=== PATIENT | female | born 1960 | race Caucasian/White ===

== ENCOUNTER 2020-03-13 13:38 | Emergency (ER) | payer BC ==
[2020-03-13 14:12] LABS: Absolute Lymphocytes (CBC) 1.1 K/uL (0.7-4.9); Basophils % 1.1 % (0-1.3); Hematocrit 36.4 % (36.0-45.0); Lymphocytes % 15.8 % (15.3-44.8); MPV 9.4 fL (7.6-11.3); RBC Red Blood Cell Count 4.08 M/uL (3.86-4.86)
[2020-03-13 14:25] LABS: Potassium 3.8 mmol/L (3.5-5.1)
--- NOTE | 2020-03-13 15:05 | RAD REPORT ---
EXAM DESCRIPTION: CTAbdomen Pelvis W Contrast - 03/13/2020 2:39 pm CLINICAL HISTORY: Abdominal pain. low back pain COMPARISON: No comparisons TECHNIQUE: Biphasic CT imaging of the abdomen and pelvis was performed with 100 ml non-ionic IV cont rast. All CT scans are performed using dose optimization technique as appropriate and may include automated exposure control or mA/KV adjustment according to patient size. FINDINGS: Linear atelectasis is present in the left lung base.The majority of the stomach is within the inferior left hemithorax compatible with a large hiatal hernia. Diffuse fatty liver. Cholelithiasis. The spleen, adrenal glands and pancreas are within normal limits . No bowel obstruction, free air, free fluid or abscess. The appendix is normal. No evidence of signi ficant lymphadenopathy. Mild compression fractures are seen affecting T12 and L1 vertebral bodies with estimated 10-15% loss of vertebral body height. These are likely acute. No posterior canal compromise. IMPRESSION: Mild acute T12 and L1 vertebral body compression fractures. No canal compromise seen. Cholelithiasis. Significant hiatal hernia with majority of the stomach intrathoracic in position.
[2020-03-13 15:11] LABS: Urine Bacteria 20-50 /HPF (<20); Urine RBC NONE SEEN /HPF (NONE SEEN)
[2020-03-13 15:12] LABS: Urine Culture Reflex Order REFLEXED
[2020-03-13 15:22] LABS: Urine Blood NEGATIVE (NEG); Urine Glucose NEGATIVE (NEG); Urine Protein NEGATIVE (NEG); Urine Specific Gravity 1.015 (1.005-1.030); Urine pH 6.5 (5.0-7.0)
[2020-03-13] MEDS ORDERED: HYDROCODONE/APAP 7.5/325 MG TAB ONE (15:41)
[2020-03-13] MEDS ORDERED: CYCLOBENZAPRINE 10 MG TAB ONE (15:41)
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
[2020-03-13 16:28] VITALS: TEMP 97.5; O2SAT 97
[2020-03-13 16:31] VITALS: BP 136/85
[2020-03-13] MEDS ORDERED: FENTANYL CITR 100 MCG/2 ML ONE (16:40)
== END 2020-03-13 16:23 | disposition home or self-care (01) ==
LOC: ER 13:38
DX: S22.089A Unspecified fracture of T11-T12 vertebra, initial encounter for closed fracture (principal); S32.019A Unspecified fracture of first lumbar vertebra, initial encounter for closed fracture; W22.8XXA Striking against or struck by other objects, initial encounter; Y93.89 Activity, other specified; Y92.9 Unspecified place or not applicable; Z88.5 Allergy status to narcotic agent; I10 Essential (primary) hypertension
CPT/HCPCS: 87088; 85025; 87086; 80048; 36415; 86900; 86850; 82565; 86901; 74177; 96374; 99284; Q9967; J3010; 81003; 81015

== ENCOUNTER 2021-05-16 16:56 | Emergency (ER) | payer BC ==
--- OUTSIDE RECORDS SUMMARY | 2021-05-16 16:59 | XMS REPORT | Continuity of Care Document ---
:1960 Author Organization [facility] t Address [address] [place] [address] Care Team Providers Name Role Phone Radiology Attending Clinician Unavailable RADIOLOGY Attending Clinician Unavailable BHUPINDER Attending Clinician Unavailable Payers Payer Name Policy Type Policy Number Effective Date Expiration Date S ource Problems This patient has no known problems. Allergies, Adverse Reactions, Alerts Allergy Allergy Status Severity Reaction(s) Onset Inactive Treating Comm ents Source Name Type Date Date Clinician NO KNOWN Drug Active Univers [facility]ERG[facility] Class [facility] Social History Social Habit Start Date Stop Date Quantity Comments Source Sex Assigned At Uni versity [facility] Exposure to SARS-CoV-2 Not sure [facility] [place] (event) [facility] Smoking Status Start Date Stop Date Source [facility] Medications This patient has no known medications. Procedures This patient has no known procedures. Encounters Start End Encounter Admission Attending Care Care Encounter Source Date/Time Date/Time Type Type Clinicians Facility Department ID 2020-06-17 2020-06-17 Hospital Radiology [facility] [id number] Univers 10:20:00 23:59:00 Encounter [place] [id number] ity [facility] [id number] [facility] [id number] [place] [id number] [address] 2020-06-17 2020-06-17 Outpatient R RADIOLOGY [facility] [id number] [facility] 2020-03-31 Outpatient BHUPINDER [facility] [id number] [facility] 07:48:00 13:18:00 , BERT Results This patient has no known results.
--- NOTE | 2021-05-16 20:28 | RAD REPORT ---
EXAM DESCRIPTION: RAD - Chest Single View - 05/16/2021 8:08 pm CLINICAL HISTORY: CHEST PAIN Chest pain. COMPARISON: No comparisons FINDINGS: Portable technique limits examination quality. Mild linear atelectasis is present in the left mid lung. Mild interstitial prominence is also present which may represent viral infection or mild interstitial pulmonary edema. Small nodular opacity in t he right mid lung is nonspecific. The heart is upper limit normal in size. Prominent hiatal hernia. Recommend followup CT chest for further evaluation.
[2021-05-16 21:11] LABS: Absolute Lymphocytes (CBC) 1.9 K/uL (0.7-4.9); Hematocrit 44.1 % (36.0-45.0); Lymphocytes % 28.5 % (15.3-44.8); MPV 8.9 fL (7.6-11.3); RBC Red Blood Cell Count 5.02 M/uL (3.86-4.86)
[2021-05-16 21:15] LABS: Protime INR 0.96
[2021-05-16] MEDS ORDERED: ASPIRIN 81 MG CHEWABLE TABLET ONE (21:17)
[2021-05-16] MEDS ORDERED: MORPHINE 4 MG/ML SYR ONE (21:17)
[2021-05-16] MEDS ORDERED: ONDANSETRON 4 MG/2 ML VIAL ONE (21:17)
[2021-05-16 21:29] LABS: ALT/SGPT 102 U/L (12-78); AST/SGOT 54 U/L (15-37); Albumin 4.1 g/dL (3.4-5.0); Alkaline Phosphatase 55 U/L (45-117); BUN Blood Urea Nitrogen 12 mg/dL (7-18); Bicarbonate 26 mmol/L (21-32); Bilirubin Direct 0.2 mg/dL (0-0.2); Bilirubin Total 0.7 mg/dL (0.2-1.0); Glucose Level 112 mg/dL (74-106); Magnesium 2.3 mg/dL (1.8-2.4); NT PRO-BNP 102 pg/mL (<125); Potassium 3.9 mmol/L (3.5-5.1); Protein, Total 8.2 g/dL (6.4-8.2); Sodium Level 141 mmol/L (136-145); Troponin (Emerg Dept Use Only) < 0.02 ng/mL (0.0-0.045)
[2021-05-16 22:22] LABS: SARS-COV-2 RT PCR POSITIVE (NEGATIVE)
[2021-05-17] MEDS ORDERED: LORazepam 2 MG/ML VIAL ONE (01:20)
[2021-05-17] MEDS ORDERED: KETOROLAC 30 MG/ML INJ ONE (01:20)
[2021-05-17] MEDS ORDERED: NA CHLORIDE 0.9% 500 ML ONE (01:20)
--- NOTE | 2021-05-17 02:17 | EDPHYS ---
Physician Documentation [facility] Name: Debra Shaw Age: 61 yrs Sex: Female : 1960 Arrival Date: 05/16/2021 Time: 16:58 Bed 19 Private MD: Johanna Shirley ED Physician Lester Yu HPI: 05/16 20:45 This 61 yrs old Female presents to ER via Wheelchair with complaints of Chest Pain, cp Shortness Of Breath. 20:45 The patient or guardian reports chest pain that is located primarily in the anterior cp chest wall, left. 20:45 Onset: today. cp 20:45 The pain does not radiate. cp 20:45 Associated signs and symptoms: Pertinent positives: shortness of breath, Pertinent cp negatives: abdominal pain, cough, diaphoresis, lower extremity pain, lower extremity swelling, palpitations, syncope, vomiting. The chest pain is described as sharp. Duration: The patient or guardian reports a single episode, that is still ongoing. Historical: - Allergies: 17:07 Phenobarbital; ap3 - Home Meds: 17:07 Lisinopril Oral [Active]; pravastatin oral [Active]; ap3 - PMHx: 17:07 High Cholesterol; Hypertension; mitral valve prolapse; ap3 - Immunization history:: Client reports receiving the 2nd dose of the Covid vaccine, and booster. - Social history:: Smoking status: Patient denies any tobacco usage or history of. Patient uses alcohol, occasionally. ROS: 20:50 Constitutional: Negative for body aches, chills, fever, poor PO intake. cp 20:50 Eyes: Negative for injury, pain, redness, and discharge. cp 20:50 ENT: Negative for ear pain, sore throat, difficulty swallowing, difficulty handling secretions. 20:50 Cardiovascular: Positive for chest pain, Negative for edema, palpitations. 20:50 Respiratory: Negative for cough, shortness of breath, wheezing. 20:50 Abdomen/GI: Negative for abdominal pain, nausea, vomiting, and diarrhea. 20:50 Back: Negative for pain at rest, pain with movement. 20:50 : Negative for urinary symptoms. 20:50 Neuro: Negative for altered mental status, dizziness, headache, numbness, syncope, weakness. 20:50 All other systems are negative. Exam: 17:10 ECG was reviewed by the Attending Physician. cp 20:55 Constitutional: The patient appears in no acute distress, alert, awake, cp non-diaphoretic, non-toxic, well developed, well nourished, anxious. 20:55 Head/Face: Normocephalic, atraumatic. cp 20:55 Eyes: Periorbital structures: appear normal, Conjunctiva: normal, no exudate, no injection, Sclera: no appreciated abnormality, Lids and lashes: appear normal, bilaterally. 20:55 ENT: External ear(s): are unremarkable, Nose: is normal, Mouth: Lips: moist, Oral mucosa: pink and intact, moist, Posterior pharynx: Airway: no evidence of obstruction, patent. 20:55 Neck: ROM/movement: is normal, is supple, without pain, no range of motions limitations, no nuchal rigidity. 20:55 Chest/axilla: Inspection: normal. 20:55 Cardiovascular: Rate: normal, Rhythm: regular, Pulses: Pulses are 2+ in right radial artery and left radial artery. Edema: is not appreciated, JVD: is not appreciated. 20:55 Respiratory: the patient does not display signs of respiratory distress, Respirations: normal, no use of accessory muscles, no retractions, labored breathing, is not present, Breath sounds: are clear throughout, no decreased breath sounds, no stridor, no wheezing. 20:55 Abdomen/GI: Inspection: abdomen appears normal, Palpation: abdomen is soft and non-tender, in all quadrants. 20:55 Back: pain, is absent, ROM is normal. 20:55 Neuro: Orientation: to person, place \\T\\ time. Mentation: is normal, Motor: moves all fours, strength is normal, Sensation: is normal. 21:17 ECG was reviewed by the Attending Physician. cp Vital Signs: 17:05 BP 215 / 104; Pulse 72; Temp 97.9(O); Pulse Ox 99% on R/A; Weight 72.57 kg; Height 5 ap3 ft. 5 in. (165.10 cm); Pain 10/10; 21:21 BP 203 / 99; Pulse 62; Resp 20; Temp 98.5; Pulse Ox 100% ; lt3 23:00 BP 179 / 93; Pulse 65; Resp 20; Pulse Ox 95% on R/A; oe 05/17 00:00 BP 168 / 86; Pulse 53; Resp 18; Pulse Ox 97% on R/A; oe 01:30 BP 169 / 99; Pulse 58; Resp 18; Pulse Ox 97% on R/A; oe 02:35 BP 159 / 87; Pulse 59; Resp 16; Pulse Ox 92% on R/A; oe 05/16 17:05 Body Mass Index 26.63 (72.57 kg, 165.10 cm) ap3 MDM: 05/16 20:46 Patient medically screened. cp 21:00 Differential diagnosis: abnormal EKG, acute myocardial infarction, acute pericarditis, cp anxiety, chest wall pain, cholecystitis, Cholelithiasis costochondritis, pancreatitis, pericarditis, pneumonia, pneumothorax, pulmonary embolus. 05/17 02:15 Data reviewed: vital signs, nurses notes, lab test result(s), EKG, radiologic studies, cp CT scan, plain films. 02:15 The patient was given aspirin in the Emergency Department. Test interpretation: by ED cp physician or midlevel provider: ECG, plain radiologic studies. Response to treatment: the patient's symptoms have resolved after treatment, the patient's pain is gone, and as a result, I will discharge patient. 02:16 ED course: VSS. Pain resolved, blood pressure markedly improved. Initial and repeat cp troponin negative, EKG negative for STEMI. will discharge to home for continued monitoring. 05/16 19:36 Order name: Basic Metabolic Panel; Complete Time: 21:30 kb 05/16 21:31 Interpretation: Normal except: CL 108; GLUC 112; GFR 63. cp 05/16 19:36 Order name: CBC with Diff; Complete Time: 21:30 kb 05/16 21:31 Interpretation: Normal except: RBC 5.02. cp 05/16 19:36 Order name: LFT's; Complete Time: 21:30 kb 05/16 21:31 Interpretation: Normal except: AST 54; ALT 102; GLOB 4.1; A/G 1.0. cp 05/16 19:36 Order name: Magnesium; Complete Time: 21:30 kb 05/16 19:36 Order name: NT PRO-BNP; Complete Time: 21:30 kb 05/16 19:36 Order name: PT-INR; Complete Time: 21:30 kb 05/16 19:36 Order name: Troponin (emerg Dept Use Only); Complete Time: 21:30 kb 05/16 19:36 Order name: XRAY Chest (1 view); Complete Time: 20:31 kb 05/16 20:33 Order name: COVID-19/FLU A+B (Document "Date of Onset" if Symptomatic); Complete Time: cp 22:39 05/16 22:39 Interpretation: Reviewed. cp 05/16 21:32 Order name: CT Chest For PE Angio cp 05/16 23:33 Order name: Troponin (emerg Dept Use Only); Complete Time: 02:07 cp 05/17 02:08 Interpretation: TROPED < 0.02; Reviewed. cp 05/16 19:36 Order name: EKG; Complete Time: 19:37 kb 05/16 19:36 Order name: Cardiac monitoring; Complete Time: 20:59 kb 05/16 19:36 Order name: EKG - Nurse/Tech; Complete Time: 21:10 kb 05/16 19:36 Order name: IV Saline Lock; Complete Time: 20:59 kb 05/16 19:36 Order name: Labs collected and sent; Complete Time: 20:59 kb 05/16 19:36 Order name: O2 Per Protocol; Complete Time: 20:59 kb 05/16 19:36 Order name: O2 Sat Monitoring; Complete Time: 20:59 kb EC/27 17:10 Rate is 67 beats/min. Rhythm is regular. CA interval is normal. QRS interval is normal. cp QT interval is normal. T waves are Inverted in lead aVR. Interpreted by me. Reviewed by me. 21:17 Rate is 60 beats/min. Rhythm is regular. CA interval is normal. QRS interval is normal. cp QT interval is normal. T waves are Inverted in lead aVR. Interpreted by me. Reviewed by me. Administered Medications: 21:26 Drug: morphine 4 mg Route: IVP; Site: left antecubital; sv1 22:13 Follow up: Response: No adverse reaction; Pain is decreased sv1 21:26 Drug: Zofran (Ondansetron) 4 mg Route: IVP; Site: left antecubital; sv1 22:13 Follow up: Response: No adverse reaction; Nausea is decreased sv1 21:26 Drug: Aspirin Chewable Tablet 324 mg Route: PO; sv1 22:13 Follow up: Response: No adverse reaction sv1 05/17 01:38 Drug: Ketorolac 15 mg Route: IVP; Site: left antecubital; sv1 01:38 Drug: Ativan (LORazepam) 0.5 mg Route: IVP; Site: left antecubital; sv1 01:38 Drug: NS 0.9% 500 ml Route: IV; Rate: bolus; Site: left antecubital; sv1 Disposition: 03:04 Co-signature as Attending Physician, Lester Yu MD. pkl Disposition Summary: 05/17/21 02:16 Discharge Ordered Location: Home cp Problem: new cp Symptoms: have improved cp Condition: Stable cp Diagnosis - Chest pain, unspecified cp - Hypertensive heart disease without heart failure cp - SARS-associated coronavirus as the cause of diseases classified elsewhere cp Followup: cp - With: Marciano Gonzalez MD - When: 1 - 2 days - Reason: Recheck today's complaints Discharge Instructions: - Discharge Summary Sheet cp - Nonspecific Chest Pain, Adult cp - How to Take Your Blood Pressure, [id number] cp - Aspirin and Your Heart cp - COVID-19 cp - Things to Know about the COVID-19 Pandemic - [facility] cp - 10 Things You Can Do to Manage Your COVID-19 Symptoms at Home - [facility] cp - COVID-19: Quarantine vs. Isolation - [facility] cp - Prevent the Spread of COVID-19 if You Are Sick - [facility] cp Forms: - Medication Reconciliation Form cp - Thank You Letter cp - Antibiotic Education cp - Prescription Opioid Use cp Prescriptions: - Ibuprofen 800 mg Oral Tablet - take 1 tablet by ORAL route every 8 hours As needed take with food; 30 tablet; cp Refills: 0, Product Selection Permitted Signatures: Dispatcher [employer] Erinn Gaviria, [employer]-Lester Downey MD MD pkl Homer Robles PA PA cp Whit Dumas RN RN ap3 Emeka Morales RN RN sv1 Corrections: (The following items were deleted from the chart) 02:08 02:08 Reviewed. cp cp 18:33 05/16 20:00 Differential diagnosis: abnormal EKG, acute myocardial infarction, acute cp pericarditis, anxiety, chest wall pain, cholecystitis, Cholelithiasis costochondritis, pancreatitis, pericarditis, pneumonia, pneumothorax, pulmonary embolus, cp
--- NOTE | 2021-05-17 02:17 | ER ---
Nurse's Notes [facility] Name: Debra Shaw Age: 61 yrs Sex: Female : 1960 Arrival Date: 05/16/2021 Time: 16:58 Bed 19 Private MD: Johanna Shirley Diagnosis: Chest pain, unspecified;Hypertensive heart disease without heart failure;SARS-associated coronavirus as the cause of diseases classified elsewhere Presentation: 05/16 17:05 Chief complaint: Patient states: she started having chest pain this afternoon when ap3 driving, Patient states she didn't think anything of it until she realized she was clutching her chest. Coronavirus screen: At this time, the client does not indicate any symptoms associated with coronavirus-19. Ebola Screen: No symptoms or risks identified at this time. Initial Sepsis Screen: Does the patient meet any 2 criteria? No. Patient's initial sepsis screen is negative. Does the patient have a suspected source of infection? No. Patient's initial sepsis screen is negative. Risk Assessment: Do you want to hurt yourself or someone else? Patient reports no desire to harm self or others. Onset of symptoms was May 16, 2021. 17:05 Method Of Arrival: Wheelchair ap3 17:05 Acuity: IRMA 2 ap3 Triage Assessment: 17:08 General: Appears uncomfortable, Behavior is cooperative. Pain: Complains of pain in ap3 anterior aspect of left upper chest and left breast Pain currently is 10 out of 10 on a pain scale. Pain began suddenly, Noted to be clutching chest. Neuro: Level of Consciousness is awake, alert, obeys commands, Oriented to person, place, time, situation, Appropriate for age Speech is normal. Cardiovascular: Reports chest pain, shortness of breath, Patient's skin is warm and dry. Respiratory: Airway is patent Respiratory effort is even, unlabored, Respiratory pattern is regular, symmetrical. Historical: - Allergies: 17:07 Phenobarbital; ap3 - Home Meds: 17:07 Lisinopril Oral [Active]; pravastatin oral [Active]; ap3 - PMHx: 17:07 High Cholesterol; Hypertension; mitral valve prolapse; ap3 - Immunization history:: Client reports receiving the 2nd dose of the Covid vaccine, and booster. - Social history:: Smoking status: Patient denies any tobacco usage or history of. Patient uses alcohol, occasionally. Screenin:09 Abuse screen: Denies threats or abuse. Nutritional screening: No deficits noted. ap3 Tuberculosis screening: No symptoms or risk factors identified. Assessment: 05/17 02:48 Reassessment: Patient is alert, oriented x 3, equal unlabored respirations, skin bb warm/dry/pink. pt seen by this RN at discharge pt verbalized understanding of and agrees to plan of care discharge instructions given pt ambulated with steady gait to exit accompanied by spouse. Vital Signs: 05/16 17:05 BP 215 / 104; Pulse 72; Temp 97.9(O); Pulse Ox 99% on R/A; Weight 72.57 kg; Height 5 ap3 ft. 5 in. (165.10 cm); Pain 10/10; 21:21 BP 203 / 99; Pulse 62; Resp 20; Temp 98.5; Pulse Ox 100% ; lt3 23:00 BP 179 / 93; Pulse 65; Resp 20; Pulse Ox 95% on R/A; oe 05/17 00:00 BP 168 / 86; Pulse 53; Resp 18; Pulse Ox 97% on R/A; oe 01:30 BP 169 / 99; Pulse 58; Resp 18; Pulse Ox 97% on R/A; oe 02:35 BP 159 / 87; Pulse 59; Resp 16; Pulse Ox 92% on R/A; oe 05/16 17:05 Body Mass Index 26.63 (72.57 kg, 165.10 cm) ap3 ED Course: 05/16 16:58 Patient arrived in ED. mr 16:59 Johanna Shirley is Private Physician. mr 17:07 Triage completed. ap3 17:09 Patient maintains SpO2 saturation greater than 95% on room air. ap3 17:09 EKG done, by ED staff. ap3 17:09 Arm band placed on left wrist. ap3 20:08 XRAY Chest (1 view) In Process Unspecified. EDMS 20:26 Homer Robles PA is PHCP. cp 20:26 Lester Yu MD is Attending Physician. cp 20:58 Emeka Morales, RORY is Primary Nurse. sv1 20:58 Initial lab(s) drawn, by ne, sent to lab. Inserted saline lock: 22 gauge in left lt3 antecubital area, using aseptic technique. 21:10 EKG done, by ED staff, reviewed by Homer PEÑA. lt3 22:28 CT Chest For PE Angio In Process Unspecified. EDNJ 05/17 02:16 Marciano Gonzalez MD is Referral Physician. cp 02:49 No provider procedures requiring assistance completed. IV discontinued, intact, bb bleeding controlled, No redness/swelling at site. Pressure dressing applied. Administered Medications: 05/16 21:26 Drug: morphine 4 mg Route: IVP; Site: left antecubital; sv1 22:13 Follow up: Response: No adverse reaction; Pain is decreased sv1 21:26 Drug: Zofran (Ondansetron) 4 mg Route: IVP; Site: left antecubital; sv1 22:13 Follow up: Response: No adverse reaction; Nausea is decreased sv1 21:26 Drug: Aspirin Chewable Tablet 324 mg Route: PO; sv1 22:13 Follow up: Response: No adverse reaction sv1 05/17 01:38 Drug: Ketorolac 15 mg Route: IVP; Site: left antecubital; sv1 01:38 Drug: Ativan (LORazepam) 0.5 mg Route: IVP; Site: left antecubital; sv1 01:38 Drug: NS 0.9% 500 ml Route: IV; Rate: bolus; Site: left antecubital; sv1 Outcome: 02:16 Discharge ordered by MD. cp 02:49 Discharged to home ambulatory, with family. bb 02:49 Condition: stable 02:49 Discharge instructions given to patient, Instructed on discharge instructions, follow up and referral plans. medication usage, Demonstrated understanding of instructions, follow-up care, medications, Prescriptions given X 1. 02:49 Patient left the ED. bb Signatures: Dispatcher [employer] EDNJ RahulGayle Brenda, RN RN bb Page, Corey, PA PA cp Chao Barton Amanda RN RN 3 Nisreen Suárez [facility] Emeka Morales RN RN sv1
[2021-05-17 02:58] VITALS: TEMP 98.5
[2021-05-17 03:03] VITALS: BP 159/87; O2SAT 92
--- NOTE | 2021-05-17 11:22 | RAD REPORT ---
EXAM DESCRIPTION: Chest For Pe Angio RadLex: CT CHEST ANGIOGRAPHY WITH IV CONTRAST CLINICAL HISTORY: CHEST PAIN. COMPARISON: None. TECHNIQUE: CTA of the chest was performed following intravenous administration of iodinated contrast . Axial soft tissue and lung window, and coronal and sagittal soft tissue window reconstructions were created and sent to PACS. 3D postprocessing was performed on an independent workstation, with images sent to PACS for subsequen t review. This exam was performed according to our departmental dose-optimization program, which includes autom ated exposure control, adjustment of the mA and/or kV according to patient size and/or use of iterati ve reconstruction technique. FINDINGS: Vascular: The pulmonary arteries are adequately opacified to the segmental level. No CT ev idence of acute pulmonary thromboembolism. No evidence of aortic aneurysm or dissection. Mild calcifi c atherosclerosis. Lungs and pleura: No pulmonary consolidation. No pleural effusion. No pneumothorax. And mild left low er lobe atelectasis adjacent to the large hiatal hernia. Mild motion degradation. Faint mosaic attenu ation throughout the lungs. Calcified granuloma in the right upper lobe. Mediastinum and neck: No mediastinal lymphadenopathy by CT size criteria. Unremarkable appearance of the thyroid gland. Cardiac: No cardiomegaly or pericardial effusion. Abdomen: Large hiatal hernia, measuring 11.1 x 7.9 x 10.4 cm (AP x TV x CC). Diffuse hepatic steatosi s. Musculoskeletal: No concerning osseous abnormality. IMPRESSION: 1. No CTA evidence of acute pulmonary thromboembolism. 2. No pulmonary consolidation or pleural effusions. 3. Faint mosaic attenuation throughout the lungs, which can be seen with pulmonary edema or chronic small vessel/airway disease. 4. Large hiatal hernia. 5. Diffuse hepatic steatosis. Electronically signed by: Ailyn Fine MD 05/16/2021 10:47 PM JOB CAPTAIN Due to temporary technical issues with the PACS/Fluency reporting system, reports are being signed by the in house radiologist without review as a courtesy to ensure prompt reporting. The interpreting r adiologist is fully responsible for the content of the report.
== END 2021-05-17 02:49 | disposition home or self-care (01) ==
LOC: ER 16:56
DX: U07.1 COVID-19 (principal); I11.9 Hypertensive heart disease without heart failure; Z88.5 Allergy status to narcotic agent
CPT/HCPCS: 93005 ×2; 85025; 80048; 36415; 83735; 85610; 80076; 84484 ×2; 83880; 0240U; 71275; 71045; 96375; 96374; 99285; Q9967; J7040; J2405